=== PATIENT | male | born 1955 | race Caucasian/White ===

== ENCOUNTER → 2016-07-23 | Outpatient (CLI) | payer BC ==
[2016-07-23 09:39] LABS: BASOPHILS % (AUTO) 1 % (0-2); EOSINOPHILS # (AUTO) 0.3 10^3uL; EOSINOPHILS % (AUTO) 6 % (0-4); MEAN CORPUSCULAR HEMOGLOBIN 30.2 PG (26.0-34.0); MEAN CORPUSCULAR VOLUME 83 FL (80-100); MEAN PLATELET VOLUME 10.2 FL (6.0-9.5); MONOCYTES # (AUTO) 0.5 X10^3; MONOCYTES % (AUTO) 8 % (3-11); NEUTROPHILS # (AUTO) 3.1 X10^3; NEUTROPHILS % (AUTO) 51 % (51-67); PLATELET COUNT 219 10^3uL (150-450); WHITE BLOOD COUNT 5.96 10^3uL (4.0-11.0)
[2016-07-23 09:41] LABS: MEAN CORPUSCULAR HGB CONC 36.3 g/dL (31.0-37.0)
[2016-07-23 10:30] LABS: ALBUMIN 4.4 g/dL (3.4-5.0); ANION GAP 16.2 MEQ/L (3-15); CALCULATED IONIZED CALCIUM 4.2 mg/dL (3.8-4.6); TOTAL PROTEIN 7.6 g/dL (6.4-8.5)
== END ==
LOC: LAB 09:24
PROVIDERS: ATTEND Internal Medicine
DX: Z00.00 Encounter for general adult medical examination without abnormal findings (principal); G44.89 Other headache syndrome; Z87.442 Personal history of urinary calculi; E78.4 Other hyperlipidemia; Z12.5 Encounter for screening for malignant neoplasm of prostate
CPT/HCPCS: 36415; 80053; 80061; 84153; 84443; 85025

== ENCOUNTER → 2016-07-29 | Outpatient (REF) | payer BC | LOC: LAB 10:15 | PROVIDERS: ATTEND Internal Medicine | DX: Z11.59 Encounter for screening for other viral diseases (principal) | CPT/HCPCS: 86803 ==

== ENCOUNTER 2016-09-30 07:36 | Day surgery (SDC) | payer BC ==
[~2016-09-30] VITALS: Ht 190.5 cm; Wt 94.0 kg
[~2016-09-30 07:36] MED LIST: IBP800T PO; LACTATED RINGERS 1,000 ML IV SCH; LOVA10TA PO; SODIUM CHLORIDE FLUSH 3 ML SYR IV PRN
--- OUTSIDE RECORDS SUMMARY | 2016-09-30 07:39 | XMS REPORT | Referral Summary ---
Author Author [facility] Organization [facility] Address Unknown Phone Unavailable Care Team Providers Care Supervisor Screen Making Name Role Phone Jacki Guerrero PCP [phone] Encounter [facility] [id number] Date(s): 03/31/16 - 03/31/16 [facility] [address] [place] [address] [phone] Discharge Disposition: 01-Home or Self Care Attending Physician: Michael Francois MD Vital Signs No data available for this section Problem List No data available for this section Allergies, Adverse Reactions, Alerts No data available for this section Medications No data available for this section Results No data available for this section Immunizations No data available for this section Procedures No data available for this section Social History No data available for this section Assessment and Plan No data available for this section
[2016-09-30 07:42] VITALS: BP 116/83
[2016-09-30] MEDS ORDERED: MIDAZOLAM 2 MG/2 ML (VERSED) VIAL ONE (08:14)
[2016-09-30] MEDS ORDERED: ALFENTANIL 500 MCG/ML (ALFENTA) 5 ML AMP IV ONE (08:14)
[2016-09-30] MEDS ORDERED: PROPOFOL 20 ML IV ONE (08:14)
[2016-09-30 08:40] VITALS: BP 144/76
[2016-09-30 09:36] VITALS: BP 137/47
--- NOTE | 2016-09-30 09:50 | OPERATIVE REPORT ---
DATE OF OPERATION: 09/30/2016 PRE-OPERATIVE DIAGNOSIS: 1. Episode of rectal bleeding. 2. Family history of colon cancer. POST-OPERATIVE DIAGNOSIS: Colon and rectal polyps OPERATIVE PROCEDURE: Total colonoscopy with polypectomies (endoscopic mucosal resection) SURGEON: Delbert Monzon MD ANESTHESIA: Monitored anesthesia care FINDINGS: 1. The bowel prep was excellent. 2. A polyp was noted in the transverse colon which was very flat. This was removed using saline-lift and cautery snare. Another larger nodular polyp was seen in the rectum and removed using the same technique. Pathology is pending. 3. No diverticula, inflammation, or angiodysplasia were seen. INDICATION: The patient is a 61-year-old under the care of Dr. Burgess, referred for colonoscopy due to an episode of rectal bleeding and the recent diagnosis of colon cancer in his brother. He presents today for this procedure. DESCRIPTION OF PROCEDURE: The patient was informed of the risks and benefits and agreed to proceed. He was placed in the left lateral decubitus position and administered IV sedation. When properly sedated a rectal exam was performed, which was normal. The lighted endoscope was passed into the colon and advanced proximally. Within the transverse colon this first small flat polyp was noted and removed using the saline lift and cautery snare. The scope was then advanced to the cecum where the ileocecal valve and the appendiceal orifice were easily seen. The scope was slowly withdrawn brought back through the ascending, transverse, descending, and sigmoid colon. No other polyps or neoplasia were seen there. Within the rectum, this second polyp was seen, photographed and removed. The rest of the rectum appeared normal. The scope was removed completing the procedure. The patient tolerated the procedure without complications. Pathology is pending.
[2016-09-30 09:59] VITALS: BP 109/72
== END 2016-09-30 10:06 | disposition home or self-care (01) ==
LOC: ASC 07:36
PROVIDERS: ATTEND Surgery
DX: K62.5 Hemorrhage of anus and rectum (principal); D12.3 Benign neoplasm of transverse colon; D12.8 Benign neoplasm of rectum; Z80.0 Family history of malignant neoplasm of digestive organs
CPT/HCPCS: 45390; 88305; J2250; J7120